=== PATIENT | male | born 1995 | race Caucasian/White ===

== ENCOUNTER 2017-04-16 00:55 | Emergency (ER) | payer OTHER ==
[2017-04-16 01:09] VITALS: RESP 18; TEMP 97.3
[2017-04-16] MEDS ORDERED: HYDROcodone-APAP 5 MG -325 MG TABLET PO ONE (01:10)
[2017-04-16] MEDS ORDERED: Ondansetron ODT Tab 8 MG TAB PO ONE (01:10)
--- NOTE | 2017-04-16 01:16 | PDOC ---
Fall HPI - General Chief Complaint: Fall Stated Complaint: fall Date Seen by Provider: 04/16/17 Time Seen by Provider: 01:11 Source: POSITIVE: Patient Exam Limitations: POSITIVE: No limitations Nurse's Notes Reviewed & Considered: Yes - History of Present Illness Initial Comments: This is a fit 21-year-old male complaining of left rib pain. Patient was in his normal state of health tonight when he slipped off of a ladder approximately 15 feet in the air he caught himself approximately 3 feet from the ground just before his safety equipment called him. He caught himself with his left arm and is now complaining of left axilla and left rib pain. He has no bruising or swelling appreciated. He denies any headache, no nausea vomiting or diarrhea, no fever chills or sweats, no shortness of breath, no cough, no hematuria dysuria, no rashes, no arthralgias. Have you received a tetanus shot in the past 10 years?: Yes Body Location Affected: REPORTS: Chest Timing: REPORTS: Abrupt Duration: 1 hour Severity: Moderate Context of Fall: REPORTS: Lost Balance Location of Fall: REPORTS: Work Fell From Height (in feet): 15 Quality: REPORTS: "Pain" Associated Symptoms: REPORTS: Trouble Breathing Location of Injuries / Pain: REPORTS: Left, Chest, Other (Axilla) Any Prior Injuries Related to Current Complaint?: No - Patient Home Medications Home Medications: Home Medications NK [No Home Medications Reported] 04/16/17 - Patient Allergies Allergies/Adverse Reactions: Allergies Allergy/AdvReac Type Severity Reaction Status Date / Time No Known Allergies Allergy Unverified 04/16/17 00:57 Past Medical History - heen HEENT History: Denies History Cardiovascular History: Denies History Respiratory History: Denies History Gastrointestinal History: Denies History Genitourinary History: Denies History Endocrine History: Denies History Musculoskeletal History: Denies History Neurological History: Denies History Blood Disorders: Denies History Psychiatric History: Denies History History of Sexually Transmitted Diseases: No Male Reproductive History: Denies History Cancer History: Denies History In Past Year Been Physically Harmed or Verbally Threatened: No History of MDRO: No History of Other Communicable Diseases: No Tobacco Use: Current Every Day Smoker Alcohol Use: None Substance Use Type: None Previous Surgical History: No Anesthesia Reactions: No Malignant Hyperthermia: No Family History of Malignant Hyperthermia: No Significant Family History: No pertinent family hx ROS - Limitations ROS Limitations: No Limitations Constitution: REPORTS: Denies Symptoms Cardiovascular: REPORTS: Chest Pain (Rib pain left anterior lateral ribs at the level of T78 and 9.) Respiratory: REPORTS: Hurts To Breathe Neurological: REPORTS: Denies Neuro Symptoms Gastrointestinal: REPORTS: Denies GI Symptoms Endocrine: REPORTS: Denies Symptoms Musculoskeletal: REPORTS: Denies MS Symptoms Genitourinary: REPORTS: Denies Symptoms Eyes: REPORTS: Denies Symptoms ENT: REPORTS: Denies Symptoms Skin: REPORTS: Denies Skin Symptoms Lympathic: REPORTS: Denies Lympathic Symptoms Immunologic: POSITIVE: Denies Symptoms Psychiatric: POSITIVE: Denies Psych Symptoms Fall Physical Exam - General Appearance General Appearance: POSITIVE: Alert, Cooperative, No Evidence of Trauma, Moderate Distress - HEENT HEENT: POSITIVE: Head Inspection Nml, Eyes Inspection Nml, Ears Inspection Nml, Nose Inspection Nml, Oral/Dental Inspect. Nml, Pharynx Inspect. Nml, PERRL, EOMI - Pupil Size Pupil Size: 5 mm: Bilateral - Neck Neck: POSITIVE: Non Tender, Painless ROM, Trachea Midline, Nexus Criteria Negative - Respiratory / CVS Respiratory / CVS: POSITIVE: No Ecchymosis, Breath Sounds Normal, No Respiratory Distress, Heart Sounds Normal, Regular Rate/Rhythm, Rib Tenderness ( Left anterior lateral ribs at the level of T7-8 and 9.) - Abdomen Abdomen: Soft: (All Quadrants), Normal Bowel Sounds: (All Quadrants), Denies Tenderness: (All Quadrants), No Splenomegaly: (All Quadrants), No Hepatomegaly: (All Quadrants), No Guarding: (All Quadrants), No Rebound: (All Quadrants), No Palpable Pulse: (All Quadrants), No Palpabale Mass: (All Quadrants), No Distention: (All Quadrants), No Rigidity: (All Quadrants) - Neuro / Psych Neuro / Psych: POSITIVE: Oriented X3, decal cutter Normal As Tested, Motor Normal, Sensation Normal, Mood Appropriate, Affect Appropriate - Skin Skin: POSITIVE: Intact, Warm, Dry - Back Back: POSITIVE: Normal Inspection, No CVA Tenderness, Non Tender, Painless ROM, No Vertebral Tenderness - Extremities Extremity Assessment: Non-Tender: (ALL), Normal ROM: (ALL), No Edema: (ALL), Normal Inspection: (ALL), No Swelling: (ALL), Pelvis Stable: (ALL) Joint Exam: POSITIVE: Joints Normal, Normal ROM, Normal Gait, Normal Weight Bearing Procedures - Laceration/Wound Repair Did patient have a laceration repair: No Fall Progress - Results Reviewed by me Xrays/CTs/US Reviewed by me: Yes Discussed with Radiologist: Yes - Patient's Progress Pain Medication Addressed: POSITIVE: Patient Refused Re-Examine Time:: 02:01 Status: POSITIVE: Improved MDM / ED Course: Patient was examined, x-ray of his chest and ribs was obtained, he received oral Zofran and refused pain medication. Findings: Chest x-ray with rib series as read by me shows no acute osseous abnormalities. No acute cardiopulmonary decompensation. Assessment: Rib pain. Plan: Discharge home ibuprofen as needed, follow-up with primary care physician in 7-10 days if there is no improvement. - Consult Counseled: POSITIVE: Patient, RE: Lab Results, RE: Radiology Results, RE: DX, RE : Need for F/U Patient Care Time - Estimated PCT Patient Care Time (In Minutes): 30 Vital Signs - Recent Vital Signs Vital Signs: Vital Signs (Last 8 hours) Temp Pulse Resp BP Pulse Ox 04/16/17 01:04 97.3 F 70 18 127/79 100 - VS Reviewed Vital Signs Reviewed: Yes Discharge Clinical Impression: Fall, Rib pain on left side Discharge Disposition: Discharged to Home Condition: Stable Patient Instructions Given at Discharge: Chest Wall Pain (ED)
--- NOTE | 2017-04-16 01:59 | DI ---
HISTORY: Fall from a ladder. Left anterior rib pain below nipple line. COMPARISON: None available. FINDINGS/IMPRESSION: 1. No displaced fractures are seen. 2. There is no consolidation, pleural effusion or pneumothorax.
== END 2017-04-16 02:26 | disposition home or self-care (01) ==
LOC: ER 00:55
DX: R07.81 Pleurodynia (principal); M79.622 Pain in left upper arm; R07.9 Chest pain, unspecified; W11.XXXA Fall on and from ladder, initial encounter; Y99.0 Civilian activity done for income or pay
CPT/HCPCS: 71111; 99282 ×2; Q0162